=== PATIENT | female | born 1965 | race Caucasian/White ===

== ENCOUNTER 2022-02-07 11:00 | Emergency (ER) | payer OTHER, SELFPAY ==
[2022-02-07] VITALS (8 sets, daily range): BP systolic 95–120; BP diastolic 58–85; PULSE 60–75; RESP 12–17; TEMP 36.6; O2SAT 99–100
--- NOTE | ~2022-02-07 | XR_ITS ---
EXAMINATION: XR chest 2V 02/07/2022 11:15 INDICATION: Chest pain and tightness PROCEDURE: 2 view chest COMPARISON: 12/28/2018 FINDINGS: The lungs are clear. The cardiomediastinal silhouette is within normal limits. There are no pleural effusions. There is no pneumothorax suspected. IMPRESSION: 1: NO ACUTE CARDIOPULMONARY DISEASE. Reviewed, dictated and finalized at location A.
--- NOTE | 2022-02-07 11:02 | ECG_ITS ---
Measurements Intervals [place] Rate: 60 P: 77 NE: 139 QRS: 62 QRSD: 101 T: 69 QT: 442 QTc: 442 Interpretive Statements SINUS RHYTHM WITH OCCASIONAL VENTRICULAR PREMATURE COMPLEXES ABNORMAL ECG COMPARED TO ECG 12/28/2018 00:15:58 SINUS RHYTHM NOW PRESENT Electronically Signed On 02-07-2022 14:19:26 CDT by Haseeb Paez M.D.
[2022-02-07 11:37] LABS: Basophils Percent Auto 0.6 % (0.2-1.2); Eosinophils Absolute Auto 0.1 K/mm3 (0-0.3); Eosinophils Percent Auto 1.9 % (0-4.4); Hematocrit 41.5 % (37.0-47.0); Hemoglobin 14.6 g/dL (12.0-15.0); Immature Granulocyte Absolute 0.01 K/mm3 (0.00-0.031); Immature Granulocyte Percent A 0.2 % (0-0.5); Lymphocytes Percent Auto 21.1 % (18.3-44.2); Mean Corpuscular HGB Conc 35.2 g/dl (32-36); Mean Corpuscular Hemoglobin 33.3 pg (26-34); Mean Corpuscular Volume 94.5 fl (80-100); Mean Platelet Volume 9.3 fl (7.4-10.4); Monocytes Absolute Auto 0.4 K/mm3 (0.1-0.6); Monocytes Percent Auto 6.7 % (2.6-8.5); Neutrophils Absolute Auto 3.6 K/mm3 (1.3-6.7); Neutrophils Percent Auto 69.5 % (45.5-73.1); Platelet Count Result 161 k/mm3 (150-375); Red Blood Count 4.39 M/mm3 (4.2-5.4); Red Cell Distribution Width 12.2 % (11.5-14.5); White Blood Count 5.2 K/mm3 (4.5-10.0)
[2022-02-07] MEDS: ASPIRIN 81 MG CHEWABLE TABLET 324 MG PO (11:41)
[2022-02-07 11:49] LABS: Alanine Aminotransferase 13 U/L (4-35); Albumin Level 4.4 g/dL (3.5-5.1); Alkaline Phosphatase 50 U/L (38-126); Anion Gap 5 mmol/L (8-16); Aspartate Amino Transferase 23 U/L (14-36); Bilirubin,Total 0.8 mg/dL (0.2-1.3); Blood Urea Nitrogen 15 mg/dL (7-17); Calcium 8.6 mg/dL (8.4-10.2); Carbon Dioxide 27 mmol/L (22-30); Chloride 105 mmol/L (98-107); Estimated CRCL calculation 85 ml/min; Estimated Glomerular Filt Rate > 60; Glucose 91 mg/dL (65-110); Lipase 78 U/L (23-300); Potassium 4.1 mmol/L (3.4-5.0); Sodium 137 mmol/L (137-145)
[2022-02-07 11:51] LABS: Prothrombin Time 12.5 Seconds (11.1-14.7)
[2022-02-07 11:52] LABS: Partial Thromboplastin Time 30.3 SECONDS (22.3-36.8)
[2022-02-07 12:00] LABS: Troponin I < 0.012 ng/mL (0.000-0.034)
--- NOTE | 2022-02-07 12:52 | ED.CHESTPAIN ---
HPI - Chest Pain General Chief Complaint: Chest Pain Stated Complaint: Chest Pain Time Seen by Provider: 02/07/22 12:32 Source: patient and family Mode of arrival: ambulatory Limitations: no limitations History of Present Illness HPI narrative: 56-year-old female presenting to the emergency department for evaluation of some midsternal chest pain that does radiate to her neck. Patient states his symptoms began Saturday and Saturday and had first. Patient does have prior history of breast augmentation and had intermittent nerve pain on the right side of the sternum. Patient states that this feels different compared to her previous pain. Patient does have a family history of heart disease for both her mother and sister. Patient denies any personal history of diabetes, hypertension, high cholesterol. Patient has never had a stress test. Related Data Home Medications Medication Instructions Recorded Confirmed atenolol 25 mg tablet 25 mg PO DAILY 04/28/21 Allergies Allergy/AdvReac Type Severity Reaction Status Date / Time No Known Allergies Allergy Verified 02/07/22 11:29 Review of Systems Review of Systems: CONSTITUTIONAL: Denies fever, chills, or sweats. EYES: Denies visual changes, redness, or discharge. ENT: Denies rhinorrhea, congestion, sore throat, or otalgia. CARDIOVASCULAR: Intermittent chest pain RESPIRATORY: Denies cough or dyspnea. GASTROINTESTINAL: Denies abdominal pain, nausea, vomiting, or diarrhea. GENITOURINARY: Denies dysuria or hematuria. SKIN: Denies rash or itching. MUSCULOSKELETAL: Denies back pain, joint pain, or myalgia. NEUROLOGIC: Denies headache, numbness, or weakness. All systems reviewed & are unremarkable except as noted in HPI and below PMFSH Surgical History Surgical History (Updated 04/28/21 @ 10:01 by Bri Jett RN) History of cholecystectomy Social History Social History (Updated 04/28/21 @ 10:01 by Bri Jett RN) Smoking status: Never smoker Alcohol intake: current Substance use: never Substance use type: does not use Exam Narrative: APPEARANCE: Well appearing, no pain, no distress, well-nourished. HEAD: normocephalic, atraumatic. EYES: PERRLA/EOMI, conjunctivae clear. NOSE: Normal no drainage THROAT: Pharynx clear, no exudate. NECK: Supple. No adenopathy, no masses. RESPIRATORY: Airway patent, respirations nonlabored. Clear to auscultation bilaterally, no rales, rhonchi, wheezing. CARDIOVASCULAR: Regular rate and rhythm without murmurs rubs or gallops. ABDOMINAL: Soft, nontender, nondistended, normal bowel sounds MUSCULOSKELETAL: Moves all extremities. Strength/ROM intact, No edema, No calf tenderness. NEURO: Alert. Cranial nerves II through XII intact. SKIN: Warm, dry. Normal Color Course Course Emergency Course: Patient was updated on the results of her work-up including negative chest x-ray, normal EKG and negative serial troponins. Patient also had a negative D-dimer. When factoring in her heart score with her risk factors patient can have outpatient cardiac follow-up. Patient was comfortable with this plan. Patient was also educated on reasons to return to the emerge department. All questions and concerns were addressed and patient was well-appearing at time of discharge. Vital Signs Vital signs: Vital Signs Pulse Rate 63 02/07/22 11:05 Respiratory Rate 15 02/07/22 11:05 Blood Pressure 120/85 02/07/22 11:05 Pulse Oximetry 100 02/07/22 11:05 Temperature 98 F 02/07/22 11:18 Pulse Rate 62 02/07/22 15:12 Respiratory Rate 15 02/07/22 15:12 Blood Pressure 95/61 L 02/07/22 15:12 Pulse Oximetry 99 02/07/22 15:12 MDM - Chest Pain Differential Diagnosis Differential diagnosis: Likely atypical chest pain Lab Data Attestation: I reviewed the patient's lab results. Result diagrams: 02/07/22 11:26 02/07/22 11:26 Labs: Lab Results 02/07/22 02/07/22 02/07/22 Range/Units 11:26
[2022-02-07] MEDS: NITROGLYCERIN SL 0.4 MG TABLET SUBLINGUAL (13:06)
[2022-02-07 14:09] LABS: D Dimer 0.33 ug/mL (<0.48)
[2022-02-07 14:26] LABS: Troponin I < 0.012 ng/mL (0.000-0.034)
== END 2022-02-07 15:14 | disposition home or self-care (01) ==
PROVIDERS: Emergency Medicine; Emergency Provider Emergency Medicine
DX: R07.9 Chest pain, unspecified (principal)
CPT/HCPCS: 36415; 71046; 80053; 83690; 84484; 85025; 85380; 85610; 85730; 93005; 99284; A9270

== ENCOUNTER 2023-03-03 13:28 | Emergency (ER) | payer OTHER, SELFPAY ==
[2023-03-03 13:35] VITALS: BP 119/67; PULSE 104; RESP 14; TEMP 37; O2SAT 100
[2023-03-03 13:58] VITALS: BP 119/67; PULSE 104; RESP 14; TEMP 37; O2SAT 100
--- NOTE | 2023-03-03 14:50 | ED.GENADULT ---
HPI - General Adult General Chief complaint: Urogenital-Female Stated complaint: Urinary Problem Source: patient Mode of arrival: ambulatory Limitations: no limitations History of Present Illness HPI narrative: PATIENT PRESENTS FOR EVALUATION OF URINARY SYMPTOMS. SYMPTOM ONSET TODAY. SYMPTOMS INCLUDE URINARY URGENCY, FREQUENCY AND DYSURIA. NO FEVER, CHILLS, NAUSEA, VOMITING, ABDOMINAL PAIN, LOW BACK PAIN, VAGINAL BLEEDING OR DISCHARGE. SHE HAS HAD URINARY TRACT INFECTIONS IN THE PAST AND THIS FEELS SIMILAR. Related Data Home Medications Medication Instructions Recorded Confirmed finasteride 1 mg tablet 1 mg PO DAILY 03/03/23 03/03/23 gabapentin 600 mg tablet 600 mg PO TID 03/03/23 03/03/23 minoxidil 2.5 mg tablet 2.5 mg PO DAILY 03/03/23 03/03/23 oxybutynin chloride 2.5 mg tablet 2.5 mg PO DAILY 03/03/23 03/03/23 progesterone micronized 100 mg 100 mg PO QAM 03/03/23 03/03/23 capsule tirzepatide 15 mg/0.5 mL 15 mg subcut WEEKLY 03/03/23 03/03/23 subcutaneous pen injector (Mounjaro) valacyclovir 500 mg tablet 500 mg PO Q12H 03/03/23 03/03/23 Allergies Allergy/AdvReac Type Severity Reaction Status Date / Time No Known Allergies Allergy Verified 03/03/23 13:45 Review of Systems Review of Systems: CONSTITUTIONAL: DENIES FEVER, CHILLS, OR SWEATS. EYES: DENIES VISUAL CHANGES, REDNESS, OR DISCHARGE. ENT: DENIES RHINORRHEA, CONGESTION, SORE THROAT, OR OTALGIA. CARDIOVASCULAR: DENIES CHEST PAIN, PALPITATIONS, OR EDEMA. RESPIRATORY: DENIES COUGH OR DYSPNEA. GASTROINTESTINAL: DENIES ABDOMINAL PAIN, NAUSEA, VOMITING, OR DIARRHEA. GENITOURINARY: REPORTS URINARY FREQUENCY, URGENCY, DYSURIA SKIN: DENIES RASH OR ITCHING. MUSCULOSKELETAL: DENIES BACK PAIN, JOINT PAIN, OR MYALGIA. NEUROLOGIC: DENIES HEADACHE, NUMBNESS, DIZZINESS, OR WEAKNESS. PSYCHIATRIC: DENIES ANXIETY OR DEPRESSION. [facility] Past Medical History Medical History No pertinent past medical history Surgical History Surgical History History of cholecystectomy Family History Family History Mother Family history non-contributory Social History Social History Smoking status: Never smoker Alcohol intake: current Substance use: never Substance use type: does not use Living arrangements: with family Gender identity (if verbalized by the patient): Female Sexual Orientation (if Verbalized by the Patient): Straight or Heterosexual Spiritual care concerns: No Exam Narrative: GENERAL: WELL-APPEARING, WELL-NOURISHED, AND IN NO ACUTE DISTRESS. HEAD: NORMOCEPHALIC, ATRAUMATIC. EYES: PERRLA AND EOMI. ENT: NARES CLEAR, NO RHINORRHEA OR EPISTAXIS. MUCOUS MEMBRANES MOIST. OROPHARYNX WITHOUT TONSILLAR HYPERTROPHY EXUDATE OR OTHER LESIONS. BILATERAL TMS PEARLY MEJIA NONBULGING NECK: SUPPLE. NO ADENOPATHY OR MASSES. NO CAROTID BRUITS OR JVD CHEST: CLEAR TO AUSCULTATION. NO RESPIRATORY DISTRESS. NO WHEEZES RALES OR RHONCHI HEART: REGULAR RATE AND RHYTHM. NO MURMUR HEARD. NORMAL PERIPHERAL PULSES. ABDOMEN: SOFT, NONTENDER, NONDISTENDED, NORMAL ACTIVE BOWEL SOUNDS. EXTREMITIES: NORMAL RANGE OF MOTION. NO EDEMA. SKIN: WARM, DRY, NO RASH. NEURO: NO FOCAL DEFICITS. ALERT AND ORIENTED X3. PSYCH: NORMAL MOOD AND AFFECT. Course Course Emergency Course: THIS IS A 58-YEAR-OLD PRESENTED FOR EVALUATION OF URINARY SYMPTOMS. 2+ LEUKOCYTES THE URINE, CONSISTENT WITH UTI. WILL DC WITH MACROBID AND PYRIDIUM. FOLLOW UP WITH PRIMARY PROVIDER. GO TO ER FOR WORSENING SYMPTOMS. PT IN AGREEMENT WITH PLAN OF CARE. Level of Care: Express Care Visit Vital Signs Vital signs: Vital Signs Temperature 37.0 C 03/03/23 13:35 Pulse Rate 104 H 03/03/23 13:35 Respiratory Rate 14 03/03/23 13:35 Blood Pressure 119/67
== END 2023-03-03 14:39 | disposition home or self-care (01) ==
PROVIDERS: Emergency Provider Nurse Practitioner
DX: N39.0 Urinary tract infection, site not specified (principal)
CPT/HCPCS: 81003; 87086; 99213; G0463

== ENCOUNTER 2023-03-18 10:34 | Emergency (ER) | payer OTHER, SELFPAY ==
[2023-03-18 10:52] VITALS: BP 113/68; PULSE 89; RESP 18; TEMP 37.1; O2SAT 100
--- NOTE | 2023-03-18 10:52 | ED.URI ---
HPI - URI/Sore Throat General Chief Complaint: Upper Respiratory Infection Stated Complaint: Sinus Pain Time Seen by Provider: 03/18/23 10:52 Source: patient and RN notes reviewed History of Present Illness HPI Narrative: Patient is a 58-year-old female who presents to the Urgent Care with complaints of frontal sinus pressure and pain, nasal drainage, and headache. Patient states that started on Saturday and has gotten worse overnight. Patient has use Flonase a few times and taken Excedrin for the headaches. Denies any fever, sore throat, cough. No other acute complaints. No acute distress noted. Patient aware of the plan of care. Some parts of this dictation were generated by voice recognition software and may contain typographical and/or grammatical inaccuracies. Related Data Home Medications Medication Instructions Recorded Confirmed finasteride 1 mg tablet 1 mg PO DAILY 03/03/23 03/18/23 gabapentin 600 mg tablet 600 mg PO TID 03/03/23 03/18/23 minoxidil 2.5 mg tablet 2.5 mg PO DAILY 03/03/23 03/18/23 oxybutynin chloride 2.5 mg tablet 2.5 mg PO DAILY 03/03/23 03/18/23 progesterone micronized 100 mg 100 mg PO QAM 03/03/23 03/18/23 capsule tirzepatide 15 mg/0.5 mL 15 mg subcut WEEKLY 03/03/23 03/18/23 subcutaneous pen injector (Mounjaro) valacyclovir 500 mg tablet 500 mg PO Q12H 03/03/23 03/18/23 Allergies Allergy/AdvReac Type Severity Reaction Status Date / Time No Known Allergies Allergy Verified 03/18/23 10:53 Review of Systems Review of Systems: CONSTITUTIONAL: Denies fever, chills, or sweats. EYES: Denies visual changes, redness, or discharge. ENT: Reports postnasal drainage, frontal sinus tenderness/pressure, rhinorrhea CARDIOVASCULAR: Denies chest pain, palpitations, or edema. RESPIRATORY: Denies cough or dyspnea. GASTROINTESTINAL: Denies abdominal pain, nausea, vomiting, or diarrhea. GENITOURINARY: Denies dysuria or hematuria. SKIN: Denies rash or itching. MUSCULOSKELETAL: Denies back pain, joint pain, or myalgia. NEUROLOGIC: Denies headache, numbness, or weakness. All other systems reviewed are negative, except as documented in HPI. [facility] Past Medical History Medical History No pertinent past medical history Surgical History Surgical History History of cholecystectomy Family History Family History Mother Family history non-contributory Social History Social History Smoking status: Never smoker Alcohol intake: current Substance use: never Substance use type: does not use Living arrangements: with family Gender identity (if verbalized by the patient): Female Sexual Orientation (if Verbalized by the Patient): Straight or Heterosexual Spiritual care concerns: No Comments At the time of my signature, I reviewed and agree with the nursing past medical, surgical, social, and family history. There is no relevant family history pertinent to the patient complaint. Exam Narrative: GENERAL: This is a well-nourished, well-developed patient, in no apparent distress. HEAD: normocephalic, atraumatic. Reported frontal sinus tenderness EYES: PERRL. Sclera clear/white. Vision is grossly intact. EARS: External ears normal, auditory canals clear and without drainage, TMs normal without perforation. Hearing grossly intact. NOSE: External nose normal with no obvious nasal discharge, nares without redness, clear rhinorrhea. THROAT: Mucous membranes moist, posterior pharynx clear. Mild postnasal drainage NECK: Neck supple RESPIRATORY: Clear to auscultation. Breath sounds equal bilaterally. No wheezes, rales, or rhonchi. SKIN: warm, intact with no suspicious lesions or rash, good texture and turgor. NEURO: awake, alert, and oriented to person, p
== END 2023-03-18 11:13 | disposition home or self-care (01) ==
PROVIDERS: Emergency Provider Nurse Practitioner Family
DX: J32.9 Chronic sinusitis, unspecified (principal)
CPT/HCPCS: 99213; G0463